=== PATIENT | female | born 1960 | race Caucasian/White ===

== ENCOUNTER 2019-06-01 10:07 | Emergency (ER) | payer MEDICAID ==
[2019-06-01] MEDS ORDERED: Ondansetron 4 MG/2 ML SDV IVPUSH ONE (10:54)
--- NOTE | 2019-06-01 10:55 | EDM.PDOC ---
ED HPI GENERAL MEDICAL PROBLEM - General Chief Complaint: Gastrointestinal Problem Stated Complaint: VOMITING Time Seen by Provider: 06/01/19 10:55 Source of Information: Reports: Patient History Limitations: Reports: No Limitations - History of Present Illness INITIAL COMMENTS - FREE TEXT/NARRATIVE: pt arrived with a history of not holding fluids down for the past 4 days. Onset: Gradual, Other ( started on wednesday. 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: Neurological History: Reports: Neuropathy, Peripheral Psychiatric History: Reports: Anxiety, Depression - Infectious Disease History Infectious Disease History: Reports: Other (See Below) Other Infectious Disease History: hepatitis e - Past Surgical History Female Surgical History: Reports: Section Social & Family History - Tobacco Use Smoking Status *Q: Never Smoker - Caffeine Use Caffeine Use: Reports: None - Recreational Drug Use Recreational Drug Use: No ED ROS GENERAL - Review of Systems Review Of Systems: See Below Constitutional: Reports: No Symptoms, Decreased Appetite HEENT: Reports: No Symptoms Respiratory: Reports: No Symptoms Cardiovascular: Reports: No Symptoms Endocrine: Reports: No Symptoms GI/Abdominal: Reports: Abdominal Pain, Nausea, Vomiting Musculoskeletal: Reports: No Symptoms Skin: Reports: No Symptoms ED EXAM, GI/ABD - Physical Exam Exam: See Below Text/Narrative:: PT ARRIVED WITH A HISTORY OF VOMITING EVERYTHING SINCE WEDNESDAY. sHE HAS A LONG HISTORY REGARDING GASTRIC REFLUX. sHE IS ON PRILOSEC. Exam Limited By: No Limitations General Appearance: Alert, Anxious, Moderate Distress, Other (PT FEELS QUITE DEHYDRATED. ) Ears: Normal TMs Nose: Normal Inspection Throat/Mouth: Normal Inspection Head: Atraumatic Neck: Normal Inspection Respiratory/Chest: No Respiratory Distress GI/Abdominal Exam: Other ( DIFFUSE TENDERNESS) (Female) Exam: Deferred Rectal (Female) Exam: Deferred Back Exam: Normal Inspection Extremities: Normal Inspection Neurological: Alert, Oriented, Normal Cognition Course - Vital Signs Last Recorded V/S: Last Vital Signs Temp 36.8 C 06/01/19 10:36 Pulse 58 L 06/01/19 10:36 Resp 20 06/01/19 10:36 BP 145/84 H 06/01/19 10:36 Pulse Ox 98 06/01/19 10:36 - Orders/Labs/Meds Orders: Active Orders 24 hr Category Date Time Status Pantoprazole [ProTONIX IV] Med 06/01/19 12:00 Active 80 mg IVPUSH .BOLUS Sodium Chloride 0.9% [Normal Saline] 1,000 ml Med 06/01/19 11:00 Active IV ASDIRECTED Sodium Chloride 0.9% [Normal Saline] 1,000 ml Med 06/01/19 11:00 Active IV ASDIRECTED Medication Orders Sodium Chloride (Normal Saline) 1,000 mls @ 999 mls/hr IV ASDIRECTED SEGUN Last Admin: 06/01/19 11:06 Dose: 999 mls/hr Sodium Chloride (Normal Saline) 1,000 mls @ 999 mls/hr IV ASDIRECTED SEGUN Last Admin: 06/01/19 12:10 Dose: 999 mls/hr Pantoprazole Sodium (Protonix Iv) 80 mg IVPUSH .BOLUS SEGUN Last Admin: 06/01/19 12:10 Dose: 80 mg Labs: Laboratory Tests 06/01/19 06/01/19 06/01/19 Range/Units 11:06 11:06 11:06 WBC 10.3 (4.5-11.0) K/uL RBC 4.58 (3.30-5.50) M/uL Hgb 14.4 (12.0-15.0) g/dL Hct 42.3 (36.0-48.0) % MCV 92 (80-98) fL MCH 31 (27-31) pg MCHC 34 (32-36) % Plt Count 248 (150-400) K/uL Neut % (Auto) 84 H (36-66) % Lymph % (Auto) 8 L (24-44) % [place] % (Auto) 8 H (2-6) % Eos % (Auto) 0 L (2-4) % Baso % (Auto) 0 (0-1) % Sodium 132 L (140-148) mmol/L Potassium 3.2 L (3.6-5.2) mmol/L Chloride 89 L (100-108) mmol/L Carbon Dioxide 25 (21-32) mmol/L Anion Gap 21.2 H (5.0-14.0) mmol/L BUN 20 H (7-18) mg/dL Creatinine 0.9 (0.6-1.0) mg/dL Est Cr Clr Drug Dosing 61.73 mL/min Estimated GFR (MDRD) > 60 (>60) Glucose 120 H (74-106) mg/dL Calcium 9.3 (8.5-10.1) mg/dL Total Bilirubin 1.1 H (0.2-1.0) mg/dL AST 70 H (15-37) U/L ALT 41 (12-78) U/L Alkaline Phosphatase 85 (46-116) U/L C-Reactive Protein 1.08 H (0.0-0.3) mg/dL Total Protein 9.1 H (6.4-8.2) g/dL Albumin 4.3 (3.4-5.0) g/dL Globulin 4.8 H (2.3-3.5) g/dL Albumin/Globulin Ratio 0.9 L (1.2-2.2) Lipase (73-393) U/L Urine Color (YELLOW) Urine Appearance (CLEAR) Urine pH (5.0-8.0) Ur Specific [place] (1.008-1.030) Urine Protein (NEGATIVE) mg/dL Urine Glucose (UA) (NEGATIVE) mg/dL Urine Ketones (NEGATIVE) mg/dL Urine Occult Blood (NEGATIVE) Urine Nitrite (NEGATIVE) Urine Bilirubin (NEGATIVE) Urine Urobilinogen (0.2-1.0) EU/dL Ur Leukocyte Esterase (NEGATIVE) Urine RBC (0-5) Urine WBC (0-5) Ur Epithelial Cells Amorphous Sediment Urine Bacteria Urine Mucus 06/01/19 06/01/19 Range/Units 11:06 11:14 WBC (4.5-11.0) K/uL RBC (3.30-5.50) M/uL Hgb (12.0-15.0) g/dL Hct (36.0-48.0) % MCV (80-98) fL MCH (27-31) pg MCHC (32-36) % Plt Count (150-400) K/uL Neut % (Auto) (36-66) % Lymph % (Auto) (24-44) % [place] % (Auto) (2-6) % Eos % (Auto) (2-4) % Baso % (Auto) (0-1) % Sodium (140-148) mmol/L Potassium (3.6-5.2) mmol/L Chloride (100-108) mmol/L Carbon Dioxide (21-32) mmol/L Anion Gap (5.0-14.0) mmol/L BUN (7-18) mg/dL Creatinine (0.6-1.0) mg/dL Est Cr Clr Drug Dosing mL/min Estimated GFR (MDRD) (>60) Glucose (74-106) mg/dL Calcium (8.5-10.1) mg/dL Total Bilirubin (0.2-1.0) mg/dL AST (15-37) U/L ALT (12-78) U/L Alkaline Phosphatase (46-116) U/L C-Reactive Protein (0.0-0.3) mg/dL Total Protein (6.4-8.2) g/dL Albumin (3.4-5.0) g/dL Globulin (2.3-3.5) g/dL Albumin/Globulin Ratio (1.2-2.2) Lipase 230 (73-393) U/L Urine Color Other A (YELLOW) Urine Appearance Slightly cloudy A (CLEAR) Urine pH 7.0 (5.0-8.0) Ur Specific [place] 1.025 (1.008-1.030) Urine Protein >=300 H (NEGATIVE) mg/dL Urine Glucose (UA) Negative (NEGATIVE) mg/dL Urine Ketones 40 H (NEGATIVE) mg/dL Urine Occult Blood Large H (NEGATIVE) Urine Nitrite Negative (NEGATIVE) Urine Bilirubin Small H (NEGATIVE) Urine Urobilinogen 0.2 (0.2-1.0) EU/dL Ur Leukocyte Esterase Negative (NEGATIVE) Urine RBC Not seen (0-5) Urine WBC 0-5 (0-5) Ur Epithelial Cells Moderate Amorphous Sediment Not seen Urine Bacteria Not seen Urine Mucus Many Meds: Medications Generic Name Dose Route Start Last Admin Trade Name Freq PRN Reason Stop Dose Admin Sodium Chloride 1,000 mls @ 999 mls/hr 06/01/19 11:00 06/01/19 11:06 Normal Saline IV 999 mls/hr ASDIRECTED SEGUN Administration Sodium Chloride 1,000 mls @ 999 mls/hr 06/01/19 11:00 06/01/19 12:10 Normal Saline IV 999 mls/hr ASDIRECTED SEGUN Administration Pantoprazole Sodium 80 mg 06/01/19 12:00 06/01/19 12:10 Protonix Iv IVPUSH 80 mg .BOLUS SEGUN Administration Discontinued Medications Generic Name Dose Route Start Last Admin Trade Name Freq PRN Reason Stop Dose Admin Al Hydroxide/Mg Hydroxide 15 0 ml 06/01/19 12:56 06/01/19 13:03 ml/ Lidocaine HCl 15 ml PO 06/01/19 12:57 15 ml ONETIME ONE Administration Ondansetron HCl 4 mg 06/01/19 10:54 06/01/19 11:08 Zofran IVPUSH 06/01/19 10:55 4 mg ONETIME ONE Administration Sucralfate 1 gm 06/01/19 13:26 Carafate PO 06/01/19 13:27 ONETIME ONE - Re-Assessments/Exams Free Text/Narrative Re-Assessment/Exam: 06/01/19 13:45 PT HAD A NONDISTENDED SOFT ABDOMAN. a US OF HER gb WAS OBTAINED WHICH WAS NEG. sHE WAS GIVEN A gi COCKTAIL WHICH GAVE ALOT OF RELIEV. sHE WAS HYDRATED WITH 2 LITERS OF FLUID. pT WAS GIVEN IV PROTONIX, gi COCKTAIL, CARAFATE AND SHE DID FEEL BETTER. Departure - Departure Time of Disposition: 13:37 Disposition: Home, Self-Care 01 Condition: Fair Clinical Impression: Gastric reflux syndrome, Gastrointestinal irritation, Dehydration - Discharge Information Referrals: Katharine Couch MD [Primary Care Provider] - Forms: ED Department Discharge Care Plan Goals: INCREASE OPERAZOLE TO TWICE DAILY FOR THE NEXT WEEK, CARAFATE 1 GM TID, EAT FREQUENT SMALL MEALS. PUSH FLUIDS, ZOFORAN 4 MG Q6H PRN FOR NAUSEA. Sepsis Event Note - Evaluation Sepsis Screening Result: No Definite Risk - Focused Exam Vital Signs: Vital Signs Temp Pulse Resp BP Pulse Ox 06/01/19 10:36 36.8 C 58 L 20 145/84 H 98 Date Exam was Performed: 06/01/19 Time Exam was Performed: 13:42 - My Orders Last 24 Hours: My Active Orders 06/01/19 11:00 Sodium Chloride 0.9% [Normal Saline] 1,000 ml IV ASDIRECTED Sodium Chloride 0.9% [Normal Saline] 1,000 ml IV ASDIRECTED 06/01/19 12:00 Pantoprazole [ProTONIX IV] 80 mg IVPUSH .BOLUS - Assessment/Plan Last 24 Hours: My Active Orders 06/01/19 11:00 Sodium Chloride 0.9% [Normal Saline] 1,000 ml IV ASDIRECTED Sodium Chloride 0.9% [Normal Saline] 1,000 ml IV ASDIRECTED 06/01/19 12:00 Pantoprazole [ProTONIX IV] 80 mg IVPUSH .BOLUS
[2019-06-01] MEDS ORDERED: Sodium Chloride 0.9% 1,000 ML IV SCH ×2 (11:00)
[2019-06-01] MEDS ORDERED: Pantoprazole 40 MG Vial IVPUSH SCH (12:00)
[2019-06-01] MEDS ORDERED: Alum Hydrox/Mag Hydrox/Simeth 15 ML, Lidocaine 2% 15 ML PO ONE ×2 (12:56)
[2019-06-01] MEDS ORDERED: Sucralfate 1 GM Tab PO ONE (13:26)
--- NOTE | 2019-06-01 13:26 | US ---
Abdomen Ltd CLINICAL HISTORY: Vomiting COMPARISON: 2012. TECHNIQUE: Real-time images were obtained through the right upper quadrant. FINDINGS: The liver is free of mass or biliary dilatation. There is increased hepatic echotexture. There is some mild beam drop off. The gallbladder has a normal appearance. The common bile duct measures 4 mm. The pancreas is of mass. The right kidney has a normal appearance. The IVC is normal. IMPRESSION: Increased hepatic parenchymal echogenicity suggests diffuse fatty infiltration. This is similar to 2013
== END 2019-06-01 14:28 | disposition home or self-care (01) ==
LOC: MERGE 10:07 → JP.ED 10:07 → EDBD 10:07 → JP.ED 14:28
DX: K31.89 Other diseases of stomach and duodenum (principal); K21.9 Gastro-esophageal reflux disease without esophagitis; F41.9 Anxiety disorder, unspecified; F32.9 Major depressive disorder, single episode, unspecified; Z79.899 Other long term (current) drug therapy
CPT/HCPCS: 36415; 76705; 80053; 81001; 83690; 85025; 86140; 96361; 96374; 99284; A9270; C9113; J2405; J7030

== ENCOUNTER 2020-04-12 03:11 | Emergency (ER) | payer MEDICAID ==
--- NOTE | 2020-04-12 04:04 | EDM.PDOC ---
ED HPI GENERAL MEDICAL PROBLEM - General Chief Complaint: ENT Problem Stated Complaint: TOOTH PAIN Time Seen by Provider: 04/12/20 03:45 Source of Information: Reports: Patient, Old Records, RN History Limitations: Reports: No Limitations - History of Present Illness INITIAL COMMENTS - FREE TEXT/NARRATIVE: 59 yo female with no dentist presents with progressive dental pain for a couple days. No fever. Has a little swelling starting on the cheek near the site of her pain. Has tried acetaminophen and ibuprofen without relief. Onset: Gradual Onset Date: 04/10/20 Duration: Day(s):, Getting Worse Location: Reports: Face (left mandible) Quality: Reports: Ache Severity: Moderate Improves with: Reports: Medication Worsens with: Reports: Other (time) Context: Reports: Other (See HPI) Associated Symptoms: Reports: No Other Symptoms. 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: Reports: Acetaminophen, NSAIDS left lower tooth Pain Score (Numeric/FACES): 8 - Related Data Allergies Allergy/AdvReac Type Severity Reaction Status Date / Time No Known Allergies Allergy Verified 04/12/20 03:28 Home Meds: Home Meds Citalopram Hydrobromide [Celexa] 20 mg PO DAILY 06/01/19 [History] Omeprazole 20 mg PO DAILY 06/01/19 [History] Mirtazapine 15 mg PO DAILY 04/12/20 [History] Pramipexole [Mirapex] 0.125 mg PO DAILY 04/12/20 [History] Past Medical History HEENT History: Reports: Impaired Vision, Other (See Below) Other HEENT History: glasses Gastrointestinal History: Reports: GERD Genitourinary History: Reports: None 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: Neurological History: Reports: Neuropathy, Peripheral Psychiatric History: Reports: Anxiety, Depression - Infectious Disease History Infectious Disease History: Reports: Chicken Pox, Measles, Other (See Below) Other Infectious Disease History: hepatitis e - Past Surgical History Female Surgical History: Reports: Section Social & Family History - Tobacco Use Tobacco Use Status *Q: Never Tobacco User - Caffeine Use Caffeine Use: Reports: Coffee, Energy Drinks, Soda - Recreational Drug Use Recreational Drug Use: No ED ROS ENT - Review of Systems Review Of Systems: See Below Constitutional: Reports: No Symptoms HEENT: Reports: Dental Pain, Other (facial swelling starting) Respiratory: Reports: No Symptoms Cardiovascular: Reports: No Symptoms GI/Abdominal: Reports: No Symptoms : Reports: No Symptoms Musculoskeletal: Reports: No Symptoms Skin: Reports: No Symptoms Neurological: Reports: No Symptoms ED EXAM, ENT - Physical Exam Exam: See Below Exam Limited By: No Limitations General Appearance: Alert, WD/WN, No Apparent Distress Eye Exam: Bilateral Eye: Normal Inspection Ears: Normal External Exam, Normal Canal, Hearing Grossly Normal Nose: Normal Inspection, No Blood Mouth/Throat: Normal Lips, Normal Oropharynx, Dental Pain (L mandibular premolar and both molars are decayed with missing fillings. ), Other (slight L mandibular area swelling. ). No: Muffled Voice Head: Atraumatic, Normocephalic, Facial Swelling (minimal) Neck: Normal Inspection, Non-Tender Respiratory/Chest: No Respiratory Distress, Lungs Clear, Normal Breath Sounds, No Accessory Muscle Use Cardiovascular: Regular Rate, Rhythm, No Edema, Tachycardia Neurological: Alert, Oriented, CN II-XII Intact, Normal Cognition, No Motor/Sensory Deficits Psychiatric: Normal Affect, Normal Mood Skin: Warm, Dry, Intact, Normal Color, No Rash Course - Vital Signs Last Recorded V/S: Last Vital Signs Temp 36.6 C 04/12/20 03:32 Pulse 107 H 04/12/20 03:32 Resp 17 04/12/20 03:32 BP 134/86 04/12/20 03:32 Pulse Ox 98 04/12/20 03:32 Departure - Departure Time of Disposition: 04:06 Disposition: Home, Self-Care 01 Condition: Fair Clinical Impression: Dental infection - Discharge Information *PRESCRIPTION DRUG MONITORING PROGRAM REVIEWED*: No *COPY OF PRESCRIPTION DRUG MONITORING REPORT IN PATIENT PAUL: No (Take ibuprofen 400 mg every 6 hrs with food for pain relief. Add Foster as directed OR acetaminophen 650 mg every 4-6 hrs for added relief. Use amoxicillin every 8 hrs for added relief. See a dentist brian. Is you need more medication while waiting for a dentist appt then see your family doctor to fill this need.) Referrals: PCP,None [Primary Care Provider] - Sepsis Event Note (ED) - Evaluation Sepsis Screening Result: No Definite Risk - Focused Exam Vital Signs: Vital Signs Temp Pulse Resp BP Pulse Ox 04/12/20 03:32 36.6 C 107 H 17 134/86 98 04/12/20 03:30 36.6 C 107 H 17 134/86 98
== END 2020-04-12 04:21 | disposition home or self-care (01) ==
LOC: JP.ED 03:11
DX: K04.7 Periapical abscess without sinus (principal); K21.9 Gastro-esophageal reflux disease without esophagitis; Z79.899 Other long term (current) drug therapy
CPT/HCPCS: 99282; 99283

== ENCOUNTER 2020-05-09 21:23 | Emergency (ER) | payer MEDICAID ==
--- NOTE | 2020-05-09 22:42 | EDM.PDOC ---
ED HPI GENERAL MEDICAL PROBLEM - General Chief Complaint: Lower Extremity Injury/Pain Stated Complaint: LEFT HIP PAIN Time Seen by Provider: 05/09/20 22:32 Source of Information: Reports: Patient History Limitations: Reports: No Limitations - History of Present Illness INITIAL COMMENTS - FREE TEXT/NARRATIVE: Saige is a 60-year-old female presenting to the ED for evaluation of left-sided sciatica type pain has been seen by her chiropractor who performed manipulation which unfortunately has made things worse. She was instructed by her chiropractor to come to the ER for imaging of her back as there is concern that she may have a ruptured disc causing sciatica. Patient denies any saddle numbness or tingling, she does report having localized pain in the left hip and back over the sacroiliac joint. She denies any injury or trauma although she does ride horses and has been bucked off of the horse in the past. 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 Today the pain was so bad that she had to leave work early. She denies any bowel or bladder control issues, weakness in the legs, or numbness. left hip/groin Pain Score (Numeric/FACES): 9 - Related Data Allergies Allergy/AdvReac Type Severity Reaction Status Date / Time No Known Allergies Allergy Verified 04/12/20 03:28 Home Meds: Home Meds Citalopram Hydrobromide [Celexa] 20 mg PO DAILY 06/01/19 [History] Omeprazole 20 mg PO DAILY 06/01/19 [History] Mirtazapine 15 mg PO DAILY 04/12/20 [History] Pramipexole [Mirapex] 0.125 mg PO DAILY 04/12/20 [History] Past Medical History HEENT History: Reports: Impaired Vision, Other (See Below) Other HEENT History: glasses Gastrointestinal History: Reports: GERD, Other (See Below) Other Gastrointestinal History: Hepatitis E Genitourinary History: Reports: None 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: Musculoskeletal History: Reports: Other (See Below) Other Musculoskeletal History: back pain for 2 weeks Neurological History: Reports: Neuropathy, Peripheral Psychiatric History: Reports: Anxiety, Depression - Infectious Disease History Infectious Disease History: Reports: Chicken Pox, Measles, Other (See Below) Other Infectious Disease History: hepatitis e - Past Surgical History Female Surgical History: Reports: Section Social & Family History - Tobacco Use Tobacco Use Status *Q: Never Tobacco User Second Hand Smoke Exposure: No - Caffeine Use Caffeine Use: Reports: Energy Drinks, Soda - Alcohol Use Days Per Week of Alcohol Use: 0 - Recreational Drug Use Recreational Drug Use: No Review of Systems - Review of Systems Review Of Systems: See Below Constitutional: Reports: No Symptoms Eyes: Reports: No Symptoms Ears: Reports: No Symptoms Nose: Reports: No Symptoms Mouth/Throat: Reports: No Symptoms Respiratory: Reports: No Symptoms Cardiovascular: Reports: No Symptoms GI/Abdominal: Reports: No Symptoms Genitourinary: Reports: No Symptoms Musculoskeletal: Reports: Back Pain (Low back), Joint Pain (Left hip and sacroiliac pain) Skin: Reports: No Symptoms Neurological: Reports: Difficulty Walking (Localized pain over the left SI joint with walking or standing.) Psychiatric: Reports: No Symptoms ED EXAM, GENERAL - Physical Exam Exam: See Below Exam Limited By: No Limitations General Appearance: Alert, Moderate Distress Head: Atraumatic, Normocephalic Neck: Normal Inspection, Supple, Non-Tender, Full Range of Motion Respiratory/Chest: No Respiratory Distress, Lungs Clear, Normal Breath Sounds Cardiovascular: Normal Peripheral Pulses, Regular Rate, Rhythm Peripheral Pulses: 2+: Radial (L), Radial (R), Posterior Tibial (L), Posterior Tibial (R) GI/Abdominal: Normal Bowel Sounds, Soft, Non-Tender Back Exam: Other (Severe pain with palpation of the left SI joint and with compression of the sacroiliac crests worrisome for acute sacroiliitis on the left side. Negative leg raise bilaterally.). No: CVA Tenderness (R), CVA Tenderness (L), Paraspinal Tenderness, Vertebral Tenderness Extremities: Normal Inspection, Normal Range of Motion, Non-Tender Neurological: Alert, Oriented, CN II-XII Intact, Normal Cognition, No Motor/Sensory Deficits, Other (Antalgic gait) Psychiatric: Normal Affect, Normal Mood Lymphatic: No Adenopathy Course - Vital Signs Last Recorded V/S: Last Vital Signs Temp 36.9 C 05/09/20 22:11 Pulse 103 H 05/09/20 22:11 Resp 20 05/09/20 22:11 BP 178/106 H 05/09/20 22:11 Pulse Ox 98 05/09/20 22:11 - Orders/Labs/Meds Orders: Active Orders 24 hr Category Date Time Status Lumbar Spine wo Cont [CT] Stat Exams 05/09/20 22:42 Taken - Radiology Interpretation Free Text/Narrative:: Preliminary review of the pelvis shows bilateral sacroiliitis worse on the left. No evidence for acute fracture. CT of the lumbar spine shows there are 6 nonrib-bearing lumbar type vertebrae bodies. These are numbered T12-L5 for the purposes of this examination. Lumbar vertebral bodies are normal in height. There is normal spinal alignment. No fracture is demonstrated. There is no prevertebral edema. Multilevel degenerative changes are present. At T12-L1 there is mild circumferential disc bulge without significant spinal stenosis or neural foramen stenosis. At L1-2, there is mild circumferential disc bulge without significant spinal stenosis or neural foramen stenosis. At L3-4 there is mild circumferential disc bulge and ligamentum flavum thickening causing mild spinal stenosis. Mild facet arthropathy is also noted on the left. No significant neuroforaminal stenosis. At L3-L4, there is circumferential disc bulging, ligamentum flavum thickening, and mild bilateral facet arthropathy causing mild to moderate spinal stenosis. Large left foraminal disc component severely narrows the neural foramen and impinges on the exiting nerve. No significant narrowing of the right neural foramen. At L4-L5, there is mild circumferential disc bulging without significant spinal stenosis or neuroforaminal stenosis. At L5-S1, there is disc bulging with endplate osteophytosis causing mild spinal stenosis and mild bilateral neural foramen stenosis. Paraspinal musculature is unremarkable. Incidental note is made of the left renal atrophy with small exophytic cortical cyst arising posteriorly. There is also mild distention of the right ureter. - Re-Assessments/Exams Free Text/Narrative Re-Assessment/Exam: 05/10/20 00:24 the patient presents with symptoms consistent with acute left- sided sacroiliitis. 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 She denies any recent trauma, however, CT of the lumbar spine and pelvis reveal significant degenerative changes in the lumbar spine with mild to moderate spinal stenosis and severe left foraminal stenosis with impingement of the left nerve at L3 and mild spinal stenosis at L2-L3 and L5-S1. In addition, she has bilateral degenerative changes in the sacroiliac joints with the left being markedly worse than the right. We will attempt to calm the inflammation down using prednisone 50 mg daily for the next 5 days. The patient may benefit from undergoing interventional radiology performing a sacroiliac injection with triamcinolone. As for the spinal stenosis it certainly would be worthwhile for her to see a neurosurgeon to look into the options of may be a microdiscectomy and decompressive laminectomy. This was discussed with the patient. At this time there is nothing more to offer her and she is discharged in satisfactory condition. Departure - Departure Time of Disposition: 00:27 Disposition: Home, Self-Care 01 Clinical Impression: Sacroiliitis, Left hip pain, Degenerative joint disease (DJD) of lumbar spine, Spinal stenosis of lumbosacral region, Neuroforaminal stenosis of lumbar spine, Left lumbar radiculopathy - Discharge Information Instructions: Hip Pain, Spinal Stenosis Referrals: PCP,None [Primary Care Provider] - Forms: ED Department Discharge Care Plan Goals: Your CAT scan confirms that you have chronic degenerative changes in your right hip likely due from previous trauma. This is creating overcompensation with the use of your left hip and also causing bilateral degenerative changes to your sacroiliac joints with the left being much worse than the right. This is likely from again overcompensation from favoring the right hip. This is likely the cause for your ongoing pain. We will do an attempt to try to get this under control with modest doses of steroids in the form of prednisone 50 mg daily for 5 days. Although I am hopeful, I am not optimistic that this will make things better and ultimately we will need to get you in a facility that has interventional radiology that can inject the sacroiliac joint with steroids to reduce the arthritis. Unfortunately manipulation will not help this situation and actually may make things worse. At some point we will also need to address the significant degeneration of your right hip as this will continue to trigger overcompensation with the left and in turn will cause recurrence of your sacroiliitis. I recommend you follow-up with the primary care provider who can arrange for interventional radiology to do the sacroiliac joint injection either in [facility], or [place]. In addition, the CT of your lumbar spine shows degenerative disc disease at multiple levels but most significant is at L3-L4 where you have mild to moderate spinal stenosis and severe neural foraminal stenosis on the left impinging on the nerve root. This is likely also causing some of your pain and may be worthwhile obtaining a consultation with neurosurgery to do microdiscectomy and laminectomy to decompress this. Again this will need to be arranged by your primary care provider. Sepsis Event Note (ED) - Evaluation Sepsis Screening Result: No Definite Risk - Focused Exam Vital Signs: Vital Signs Temp Pulse Resp BP Pulse Ox 05/09/20 22:11 36.9 C 103 H 20 178/106 H 98 - Problem List & Annotations (1) Left hip pain SNOMED Code(s): 66416080 Code(s): M25.552 - PAIN IN LEFT HIP Status: Acute Priority: High Current Visit: Yes (2) Sacroiliitis SNOMED Code(s): 45220968 Code(s): M46.1 - SACROILIITIS, NOT ELSEWHERE CLASSIFIED Status: Acute Priority: High Current Visit: Yes (3) Left lumbar radiculopathy SNOMED Code(s): 286291917 Code(s): M54.16 - RADICULOPATHY, LUMBAR REGION Status: Acute Priority: High Current Visit: Yes (4) Neuroforaminal stenosis of lumbar spine SNOMED Code(s): 088165839 Code(s): M48.061 - SPINAL STENOSIS, LUMBAR REGION WITHOUT NEUROGENIC GARY Status: Acute Priority: High Current Visit: Yes (5) Spinal stenosis of lumbosacral region SNOMED Code(s): 701170686 Code(s): M48.07 - SPINAL STENOSIS, LUMBOSACRAL REGION Status: Acute Priority: High Current Visit: Yes - Problem List Review Problem List Initiated/Reviewed/Updated: Yes - My Orders Last 24 Hours: My Active Orders 05/09/20 22:42 Lumbar Spine wo Cont [CT] Stat - Assessment/Plan Last 24 Hours: My Active Orders 05/09/20 22:42 Lumbar Spine wo Cont [CT] Stat
--- NOTE | 2020-05-09 23:37 | CRLCT ---
INDICATION: Sciatic pain. Assess for sacroiliitis. COMPARISON: None. TECHNIQUE: Multi detector imaging of the bony pelvis with axial, coronal and sagittal reformats. FINDINGS: Anatomic lumbosacral and sacrococcygeal alignment. Minimal facet arthrosis in the lumbar spine and main. Minor disc height loss L5-S1. Minor subarticular sclerosis anterior osteophytic spurring with subtle vacuum joint at the SI joints bilaterally. Somewhat sclerotic undulating the iliac articular cortex on the left. Left joint is slightly wider than the right. No pelvic fracture. Chronic appearing deformity of the right femoral head neck with narrowed neck and shallow head although the articular cortex appears maintained. Mild osteoarthritic narrowing superiorly. Numerous tip stippled foci of mineralization most evident in the proximal adductor brevis and obturator externus and incompletely visualized in the posterior thigh lateral margin of the adductor tamara. A few stippled foci of mineralization just above the posterior greater trochanter in the tissue plane between the gluteus medius and minimus. Normal appearance of the left hip and thigh. IMPRESSION: 1. Mild osteoarthritis of sacroiliac joints. Subtle chronic sacroiliitis suspected on the left given the appearance of the ileum. 2. Minor lumbosacral facet arthrosis. Minimal L5-S1 disc disease. 3. 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 This is most typically associated with synovial chondromatosis which potentially could account for the scattered areas of soft tissue mineralization around the hip and right thigh. Other etiologies leading to this appearance are rheumatoid arthritis which may also account for the left-sided sacroiliitis chronic changes. Occasionally amyloidosis also gives this femoral deformity. Please note that all CT scans at this facility use dose modulation, iterative reconstruction, and/or weight-based dosing when appropriate to reduce radiation dose to as low as reasonably achievable. Dictated by Guevara King MD @ May 10 2020 9:15AM Signed by Dr. Guevara King @ May 10 2020 9:29AM
--- NOTE | 2020-05-10 00:20 | CRLCT ---
Indication: Low back pain with left-sided sciatica Technique: Nonenhanced axial CT imaging through the lumbar spine. Sagittal and coronal reconstructions are provided. Comparison: None Findings: There are 6 [id number] lumbar type vertebral bodies. These will be numbered as T12 through L5 for the purpose of this examination. The lumbar vertebral bodies are normal in height. There is normal spinal alignment. No fracture is demonstrated. There is no prevertebral edema. Multilevel degenerative changes are present. At T12-L1, there is mild circumferential disc bulging without significant spinal stenosis or neural foraminal stenosis. At L1-2, there is mild circumferential disc bulging without significant spinal stenosis or neural foraminal stenosis. At L2-3, there is mild circumferential disc bulging and ligamentum flavum thickening causing mild spinal stenosis. Mild facet arthropathy is noted on the left. No significant neural foraminal stenosis. At L3-4, there is circumferential disc bulging, ligamentum flavum thickening, and mild bialteral facet arthropathy causing [id number] spinal stenosis. Large left foraminal disc component severely narrows the neural foramen and impinges the exiting nerve. No significant narrowing of the right neural foramen. At L4-5, there is mild circumferential disc bulging without significant spinal stenosis or neural foraminal stenosis. At L5-S1, there is disc bulging with endplate osteophytosis causing mild spinal stenosis and mild bilateral neural foraminal stenosis. The paraspinal musculature is unremarkable. Incidental note is made of left renal atrophy with a small exophytic cortical cyst arising posteriorly. There is also mild distention of the right ureter. Impression: 1. Degenerative changes. No acute fracture or traumatic malalignment. 2. At L3-4, Mild to moderate spinal stenosis and severe left neural foramen stenosis with impingement of the left L3 nerve. 3. Mild spinal stenosis at L2-3 and L5-S1. Please note that all CT scans at this facility use dose modulation, iterative reconstruction, and/or weight-based dosing when appropriate to reduce radiation dose to as low as reasonably achievable. (Electronically Signed)
== END 2020-05-10 01:00 | disposition home or self-care (01) ==
LOC: JP.ED 21:23
DX: M46.1 Sacroiliitis, not elsewhere classified (principal); M48.07 Spinal stenosis, lumbosacral region; M48.062 Spinal stenosis, lumbar region with neurogenic claudication; M47.26 Other spondylosis with radiculopathy, lumbar region; K21.9 Gastro-esophageal reflux disease without esophagitis; G62.9 Polyneuropathy, unspecified; Z79.899 Other long term (current) drug therapy
CPT/HCPCS: 72131; 72192; 99283; 99283-25

== ENCOUNTER 2022-12-24 22:13 | Emergency (ER) | payer BC, MEDICAID ==
[2022-12-24] MEDS ORDERED: Sodium Chloride 0.9% 10 ML Syringe FLUSH PRN (22:53)
[2022-12-24] MEDS ORDERED: Ondansetron 4 MG/2 ML SDV IVPUSH ONE (22:55)
[2022-12-24] MEDS ORDERED: fentaNYL 100 MCG/2 ML SDV IVPUSH ONE (22:55)
[2022-12-24] MEDS ORDERED: Lactated Ringers 1,000 ML IV SCH (23:00)
[2022-12-24] MEDS ORDERED: Sodium Chloride 0.9% 10 ML Syringe FLUSH ONE (23:07)
[2022-12-24] MEDS ORDERED: Iopamidol 612 MG/ML 100 ML Bottle IV PRN (23:07)
[2022-12-24 23:08] LABS: BASOPHILS PERCENT AUTO 0.2 % (0.1-1.3); HEMATOCRIT 39.8 % (34.3-46.0); HEMOGLOBIN 14.1 g/dL (11.2-15.5); IMMATURE GRAN ABSOLUTE AUTO 0.05 K/uL (0.00-0.23); IMMATURE GRAN PERCENT AUTO 0.5 % (0.0-0.7); LYMPHOCYTES ABSOLUTE AUTO 0.72 K/uL (0.8-3.3); LYMPHOCYTES PERCENT AUTO 6.8 % (11.4-47.7); MEAN CORPUSCULAR HEMOGLOBIN 34.5 pg (31.6-35.5); MEAN CORPUSCULAR HGB CONC 35.4 g/dL (31.6-35.5); MEAN CORPUSCULAR VOLUME 97.3 fL (81.4-99.0); MONOCYTES ABSOLUTE AUTO 0.45 K/uL (0.20-0.90); MONOCYTES PERCENT AUTO 4.2 % (3.3-12.6); NEUTROPHILS ABSOLUTE AUTO 9.35 K/uL (1.0-7.6); NEUTROPHILS PERCENT AUTO 88.3 % (40.0-78.1); PLATELET COUNT,PLT 185 K/uL (130-375); RED BLOOD CELL COUNT 4.09 M/uL (3.77-5.24); WHITE BLOOD CELL COUNT,WBC 10.6 K/uL (3.2-11.0)
[2022-12-24 23:12] LABS: BASOPHILS ABSOLUTE AUTO 0.02 K/uL (0.00-0.10)
[2022-12-24] MEDS ORDERED: Sodium Chloride 0.9% 50 ML IV SCH (23:15)
[2022-12-24 23:25] LABS: CREATININE 0.8 mg/dL (0.6-1.0); EST CRCL DRUG DOSING (CG) 67.29 mL/min; ESTIMATED GFR 84 mL/min (>60)
[2022-12-24 23:29] LABS: A/G RATIO 0.9 (1.2-2.2); ALANINE AMINOTRANSFERASE,ALT 102 U/L (12-78); ALBUMIN 3.8 g/dL (3.4-5.0); ALKALINE PHOSPHATASE 82 U/L (46-116); ASPARTATE AMNIOTRANSFERASE,AST 195 U/L (15-37); BILIRUBIN TOTAL 0.7 mg/dL (0.2-1.0); BLOOD UREA NITROGEN,BUN 18 mg/dL (7-18); C-REACTIVE PROTEIN 0.28 mg/dL (0.0-0.3); CALCIUM 8.7 mg/dL (8.5-10.1); CARBON DIOXIDE,CO2 21 mmol/L (21-32); CHLORIDE,CL 97 mmol/L (100-108); GLUCOSE RANDOM 136 mg/dL (74-106); SODIUM,NA 137 mmol/L (140-148)
[2022-12-25] MEDS ORDERED: droPERidol 5 MG/2 ML SDV IVPUSH ONE (00:08)
[2022-12-25] MEDS ORDERED: HYDROmorphone 1 MG/ML Syringe IVPUSH ONE (00:08)
[2022-12-25 00:34] LABS: APPEARANCE,URINE CLEAR (CLEAR); BILIRUBIN,URINE NEGATIVE (NEGATIVE); COLOR,URINE YELLOW (YELLOW); GLUCOSE,URINE NEGATIVE (NEGATIVE); KETONES,URINE 80 mg/dL (NEGATIVE); LEUKOCYTE ESTERASE,URINE NEGATIVE (NEGATIVE); NITRITE,URINE NEGATIVE (NEGATIVE); OCCULT BLOOD,URINE TRACE-LYSED (NEGATIVE); PH,URINE 6.5 (5.0-8.0); PROTEIN,URINE >=300 mg/dL (NEGATIVE); UROBILINOGEN,URINE 0.2 EU/dL (0.2-1.0)
[2022-12-25 00:55] LABS: AMORPHOUS SEDIMENT,URINE NOT SEEN; BACTERIA,URINE RARE; EPITHELIAL CELLS,URINE RARE; MUCUS,URINE NOT SEEN; RBC,URINE 0-5 (0-5); WBC,URINE 0-5 (0-5)
== END 2022-12-25 02:07 | disposition home or self-care (01) ==
LOC: JP.ED 22:13
DX: R10.9 Unspecified abdominal pain (principal); F17.210 Nicotine dependence, cigarettes, uncomplicated; J45.909 Unspecified asthma, uncomplicated; Z20.822 Contact with and (suspected) exposure to COVID-19; Z79.899 Other long term (current) drug therapy
CPT/HCPCS: 36415; 74177; 80053; 81001; 83605; 84145; 85025; 86140; 87635; 96361; 96374; 96375; 99284; J1170; J1790; J2405; J3010; J3490; J7120; Q9967; U0002